=== PATIENT | female | born 1940 | race Caucasian/White ===

== ENCOUNTER 2016-11-27 10:38 | Emergency (ER) | payer MEDICARE, OTHER ==
[2016-11-27 11:45] LABS: HEMOGLOBIN 14.2 gm/dl (12.3-15.3); RED BLOOD COUNT 4.5 M/UL (4.00-5.10); WHITE BLOOD COUNT 8.9 K/UL (4.5-11.0)
== END 2016-11-27 13:00 | disposition home or self-care (01) ==
LOC: ER1 10:38
PROVIDERS: Physician Assistant
DX: L29.9 Pruritus, unspecified (principal); I10 Essential (primary) hypertension; I51.9 Heart disease, unspecified; Z88.0 Allergy status to penicillin; Z88.2 Allergy status to sulfonamides
CPT/HCPCS: 36415; 80053; 85025; 99283; Q0177

== ENCOUNTER 2016-12-08 01:17 | Emergency (ER) | payer MEDICARE, OTHER ==
[2016-12-08 04:26] LABS: HEMOGLOBIN 15.1 gm/dl (12.3-15.3); RED BLOOD COUNT 4.75 M/UL (4.00-5.10); WHITE BLOOD COUNT 8.1 K/UL (4.5-11.0)
[2016-12-08 04:42] LABS: BUN/CREATININE RATIO 14 (0-10)
== END 2016-12-08 07:00 | disposition home or self-care (01) ==
LOC: ER1 01:17
PROVIDERS: Emergency Medicine
DX: N30.00 Acute cystitis without hematuria (principal); I10 Essential (primary) hypertension; R30.0 Dysuria
CPT/HCPCS: 36415; 70450; 71010; 80053; 81001; 84484; 85025; 87040; 87086; 96374; 96375; 99285; J0696; J2405; J7050

== ENCOUNTER 2016-12-11 09:59 | Emergency (ER) | payer MEDICARE, OTHER ==
[2016-12-11 12:02] LABS: HEMOGLOBIN 14.7 gm/dl (12.3-15.3); RED BLOOD COUNT 4.66 M/UL (4.00-5.10)
[2016-12-11 12:28] LABS: BUN/CREATININE RATIO 12 (0-10)
== END 2016-12-11 14:00 | disposition home or self-care (01) ==
LOC: ER1 09:59
PROVIDERS: Emergency Medicine
DX: H81.399 Other peripheral vertigo, unspecified ear (principal); I10 Essential (primary) hypertension; F41.9 Anxiety disorder, unspecified; F32.9 Major depressive disorder, single episode, unspecified; M19.90 Unspecified osteoarthritis, unspecified site; Z79.899 Other long term (current) drug therapy
CPT/HCPCS: 36415; 70450; 71020; 80053; 81001; 82550; 82553; 83690; 83874; 84484; 85025; 85610; 85730; 87086; 93005; 99284

== ENCOUNTER 2017-03-13 14:08 | Emergency (ER) | payer MEDICARE, OTHER ==
[2017-03-13 15:03] LABS: HEMOGLOBIN 13.6 gm/dl (12.3-15.3); RED BLOOD COUNT 4.41 M/UL (4.00-5.10); WHITE BLOOD COUNT 12.4 K/UL (4.5-11.0)
== END 2017-03-13 18:30 | disposition home or self-care (01) ==
LOC: ER1 14:08
PROVIDERS: Emergency Medicine
DX: F41.9 Anxiety disorder, unspecified (principal); N28.9 Disorder of kidney and ureter, unspecified; I10 Essential (primary) hypertension; Z88.0 Allergy status to penicillin; Z88.2 Allergy status to sulfonamides; Z91.041 Radiographic dye allergy status; Z79.899 Other long term (current) drug therapy
CPT/HCPCS: 36415; 71010; 80053; 81001; 82550; 82553; 83874; 84484; 85025; 87086; 93005; 99284; J7030